=== PATIENT | male | born 1945 | race African-American/Black ===

== ENCOUNTER 2017-04-11 06:26 | Day surgery (SDC) | payer MEDICARE, BC, OTHER ==
--- NOTE | 2017-03-28 16:35 | HP ---
CC: Darlene Rubio MD * PREOPERATIVE HISTORY AND PHYSICAL: DATE OF ADMISSION/SURGERY: 04/11/17 DATE OF PREOPERATIVE HISTORY AND PHYSICAL EXAMINATION: 03/27/17 ATTENDING SURGEON: Eric Garay MD * (dictated by Natasha Sutherland NP). CHIEF COMPLAINT: Gallbladder polyps. HISTORY OF PRESENT ILLNESS: The patient is a 71-year-old male recently evaluated by Dr. Garay for intermittent abdominal pain and a known history of gallbladder polyps. The patient is complaining of more frequent abdominal discomfort mostly in the epigastrium and at times has a fear of food. A more recent ultrasound showed multiple gallbladder polyps as opposed to one. The patient denies any vomiting or change in the color of urine or stools. He has not had previous abdominal surgery. Dr. Garay has recommended laparoscopic cholecystectomy and has described the nature of the surgical procedure, the rationale for the procedure, the relevant risks, and benefits, and today I reviewed the expected postoperative care and recovery. The patient has had a chance to ask questions and stated that he understands the information and is satisfied with the answers given to his questions. He will sign surgical consent on the day of surgery. PAST MEDICAL HISTORY: Significant for hypertension, dyslipidemia, and hemorrhoids. PAST SURGICAL HISTORY: Limited to angiogram in the . MEDICATIONS: 1. Lisinopril 30 mg p.o. daily. 2. Aspirin 81 mg p.o. daily and the patient was instructed to hold it for 5 days preoperatively and take his last dose on 04/05/17. 3. Pravastatin 40 mg p.o. daily at bedtime. 4. Latanoprost eye drops 0.005% 1 drop in each eye daily. 5. [place] fish oil 1 capsule daily. 6. Dorzolamide HCl/timolol maleate 22.3/6.8 mg/mL 1 drop in both eyes b.i.d. ALLERGIES: No known drug allergies. Food allergy to [place], which caused nausea and vomiting. SOCIAL HISTORY: He is and is retired. He quit smoking many years ago. He denies the use of alcohol or other substances. FAMILY HISTORY: No known anesthesia complications, bleeding tendencies, or clotting disorders. REVIEW OF SYSTEMS: He denies any constitutional symptoms or recent acute illness or hospitalization. Cardiovascular: He is treated for hypertension and dyslipidemia; he was evaluated in October [address] Sanchez for what was diagnosed as atypical chest discomfort. His symptoms were over the course of 1 weekend in September 2016 and has not had a recurrence. Please see the attached consultation note by Dr. Sanchez for further details. Respiratory: Denies any chronic cough, asthma, or pneumonia. Gastrointestinal: As described in history of present illness. Genitourinary: Denies any dysuria. Denies any change in the color of urine. Musculoskeletal: Denies any complaints. Neurologic: Denies any complaints. He denies any bleeding tendencies and has never received a blood transfusion. He has received conscious sedation without any side effects and has never received general anesthesia. PHYSICAL EXAMINATION GENERAL SURVEY: The patient is a 71-year-old male, overweight, well developed, in no acute distress. VITAL SIGNS: Height 69 inches, weight 195 pounds, body mass index 28.8, blood pressure 126/84, pulse 72 and regular, respiratory rate 18, temperature 98. HEENT: Benign. Anicteric sclerae. NECK: Supple. No cervical lymphadenopathy. LUNGS: Breath sounds bilaterally clear and equal. HEART: Regular rate and rhythm. No murmurs or rubs appreciated. ABDOMEN: Active bowel sounds. Soft, nondistended, nontender throughout. No obvious masses, organomegaly, or evidence of ventral hernia. GENITALIA: Deferred. RECTAL: Deferred. BACK: No CVA tenderness. EXTREMITIES: Warm without edema or skin ulcerations. NEUROLOGIC: Alert and oriented x3. Steady gait. SKIN: Warm, dry, intact, anicteric. IMPRESSION: Gallbladder polyps. PLAN: Same day surgery admission to Dr. Garay's service on 04/11/17 for laparoscopic cholecystectomy. NATASHA SUTHERLAND NP [id number]/[facility] #: [id number] ALONDRA
[~2017-04-11 06:26] MED LIST: Buffered Lidocaine 0.9% SYRIN* 5 ML/SYR SYRINGE INTRADERM ONE; Sodium Citrate/Citric Acid* 15 ML UDC PO ONE
[2017-04-11] MEDS ORDERED: Bupivacaine 0.25% W/EPI* 50 ML VIAL ONE (07:01)
[2017-04-11] MEDS ORDERED: Sodium Citrate/Citric Acid* 15 ML UDC ONE (07:01)
[2017-04-11] MEDS ORDERED: Heparin VIAL(*) 5000 UNITS/ML VIAL (FIVE THOUSAND) ONE (07:01)
[2017-04-11] MEDS ORDERED: ceFAZolin 2 GM PREMIX(*) 2 GM/50 ML BAG IVPB ONE (07:01)
[2017-04-11] MEDS ORDERED: Buffered Lidocaine 0.9% SYRIN* 5 ML/SYR SYRINGE ONE (07:02)
[2017-04-11] MEDS ORDERED: Lidocaine 2% PF * 5 ML VIAL ONE (07:38)
[2017-04-11] MEDS ORDERED: Propofol* 10 MG/ML 20 ML BTL IV PUSH ONE (07:38)
[2017-04-11] MEDS ORDERED: Midazolam* 1 MG/ML 2 ML VIAL (2 MG) ONE (07:38)
[2017-04-11] MEDS ORDERED: fentaNYL* 50 MCG/ML 2 ML VIAL (100 MCG VIAL) ONE (07:38)
[2017-04-11] MEDS ORDERED: Ondansetron INJ* 2 MG/ML VIAL IV PRN (07:45)
[2017-04-11] MEDS ORDERED: fentaNYL* 50 MCG/ML 2 ML VIAL (100 MCG VIAL) IV PRN (07:45)
[2017-04-11] MEDS ORDERED: Rocuronium* 10 MG/ML VIAL ONE (07:56)
[2017-04-11] MEDS ORDERED: Dexamethasone IV* 4 MG/ML 1 ML (4 MG) ONE (08:29)
--- NOTE | 2017-04-11 08:38 | SURGPN ---
Brief Operative Note - Surgery Procedures: Procedures Pre-OP Diagnoses: chronic cholecystitis, GB polyps Post-op Diagnosis: same Procedure: Laparoscopic cholecystectomy Surgeon: Jarrod Petersont: Kelsy Felton: KENZIE Frazier EBL: minimal IVF: minimal Specimen: gallbladder Drains: none
[2017-04-11] MEDS ORDERED: oxyCODONE/Acetamin 5/325 MG* TAB PO PRN (08:49)
[2017-04-11 09:52] VITALS: BP 150/69
--- NOTE | 2017-04-12 03:42 | OP ---
CC: Dr. Darlene Rubio; [facility] * DATE OF OPERATION: 04/11/17 - [facility] DATE OF : 47 SURGEON: Eric Garay MD STUMP SHOOTER: PARAM Ruiz ANESTHESIOLOGIST: Dr. Frazier. ANESTHESIA: General. PRE-OP DIAGNOSIS: Chronic cholecystitis and gallbladder polyps. POST-OP DIAGNOSIS: Chronic cholecystitis and gallbladder polyps. OPERATIVE PROCEDURE: Laparoscopic cholecystectomy. BLOOD LOSS: Minimal. FLUIDS GIVEN: Crystalloid. SPECIMEN: Gallbladder. DRAINS: None. DESCRIPTION OF PROCEDURE: Mr. Solomon was identified in the preoperative area, marked, taken to the operating room, placed on the operating table in supine position, preoperative antibiotics given, sequential devices were placed on bilateral lower extremities. General anesthesia was induced. The patient's abdomen was prepped and draped in a standard surgical fashion and a timeout was performed. Folds of the umbilicus were elevated anteriorly and a Veress needle was inserted into the abdominal cavity, which was then allowed to insufflate to a pressure of 15 mmHg. The patient tolerated the insufflation well. A periumbilical incision was made and a 5 mm trocar was inserted through this. Laparoscope was inserted through this and there was no evidence of injury from the trocar insertion or from the Veress needle which was removed. Additional trocar was then placed in the following position: A 12 mm in the subxiphoid area and two 5 mm along the right costal margin. The patient was repositioned. Gallbladder fundus was identified, elevated above the liver, did not show any significant inflammatory changes. The common bile duct was identified along with the cystic duct. The fundus of the gallbladder was grasped and retracted towards the right lower quadrant. This gave us the critical view and dissection was carried out, taking the peritoneum off the medial aspect of the gallbladder and then off the lateral aspect of the cystic artery and cystic duct were both isolated. The cystic duct was triply clipped and ligated. Cystic artery was doubly clipped and ligated. Gallbladder was removed from liver bed, placed in endoscopic retrieval bag and brought out through the subxiphoid port. Review of the abdomen showed no bleeding, no bile. Clips were in place and abdomen was allowed to collapse. Trocars removed under direct vision and all 4 skin incisions were reapproximated in 4-0 Monocryl and subcuticular sutures followed by sterile dressing. [id number]/[facility] #: [id number] ALONDRA
== END 2017-04-11 10:20 | disposition home or self-care (01) ==
LOC: OR 06:26
PROVIDERS: ATTEND Surgery
DX: K81.1 Chronic cholecystitis (principal); I10 Essential (primary) hypertension; E78.5 Hyperlipidemia, unspecified; Z87.891 Personal history of nicotine dependence
CPT/HCPCS: 88304; A9270-GY; J0690; J1100; J1644; J2250; J2704; J3010

== ENCOUNTER 2017-07-31 10:54 | Day surgery (SDC) | payer MEDICARE, BC, OTHER ==
[~2017-07-31 10:54] MED LIST changes: +Acetaminophen TAB* 325 MG PO PRN; +Phenylephr/Ketorolac 1%/0.3% OPH DROP BTL ONE; -Sodium Citrate/Citric Acid* 15 ML UDC PO ONE
[2017-07-31] MEDS ORDERED: fentaNYL* 50 MCG/ML 2 ML VIAL (100 MCG VIAL) ONE (12:21)
[2017-07-31] MEDS ORDERED: Lidocaine 2% PF * 5 ML VIAL ONE (12:22)
[2017-07-31] MEDS ORDERED: Propofol* 10 MG/ML 20 ML BTL IV PUSH ONE (12:22)
[2017-07-31 13:48] VITALS: BP 144/78
[2017-07-31] MEDS ORDERED: Phenylephrine 2.5% OPTH.SOL* 2 ML BTL ONE (15:04)
[2017-07-31] MEDS ORDERED: Buffered Lidocaine 0.9% SYRIN* 5 ML/SYR SYRINGE ONE (15:04)
[2017-07-31] MEDS ORDERED: Tropicamide 1% OPTH.SOL* BTL ONE (15:04)
[2017-07-31] MEDS ORDERED: Neomycin/Polymy/Dex OPHTH.OIN* 3.5 GM ONE (15:04)
[2017-07-31] MEDS ORDERED: Ketorolac 0.5% OPHTH (NF) 0.5 % 5 ML BTL ONE (15:04)
[2017-07-31] MEDS ORDERED: Cyclopentolate 1% OPTH.SOL* 2 ML BTL ONE (15:04)
[2017-07-31] MEDS ORDERED: Tetracaine 0.5% OPTH.SOL 4 ML* 1 DROP BTL ONE (15:04)
[2017-07-31] MEDS ORDERED: Lidocaine 1% MPF* 2 ML VIAL ONE (15:04)
--- NOTE | 2017-08-01 01:07 | OP ---
DATE OF OPERATION: 07/31/17 [facility] DATE OF : 47 SURGEON: Dr. Iglesia Gonzalez. CUSTOMER LIAISON: None. ANESTHESIA: General. PRE-OP DIAGNOSES: Cataract and glaucoma, left eye. POST-OP DIAGNOSES: Cataract and glaucoma, left eye. OPERATIVE PROCEDURE: Phacoemulsification and cataract extraction with posterior chamber intraocular lens implant, left eye and iStent implant, left eye. COMPLICATIONS: None. BLOOD LOSS: None. DESCRIPTION OF PROCEDURE: The patient was brought to the operating room and received general anesthesia without any complications. A drop of Tetracaine was placed in his left eye. The patient was prepped and draped in the usual sterile fashion for ophthalmic surgery and attention was directed to the left eye where a speculum was placed. A paracentesis was created at the 5 o'clock position. A 0.1 cc of 1% preservative-free lidocaine was injected into the anterior chamber followed by DisCoVisc. The eye was digitally stabilized while a 2.75 mm keratome was used to create a triplanar clear corneal incision at the 3 o'clock position. A continuous curvilinear capsulorrhexis was created with a cystotome and Utrata forceps. BSS on a cannula was used to hydrodissect the lens from the capsule. Phacoemulsification was performed in a divide-and- conquer technique to create 4 fragments which were removed. Residual cortical material was removed with irrigation and aspiration. Omidria had been added to the irrigating solution at the beginning of the case due to the small pupil. 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 DisCoVisc was used to inflate the capsular bag further and an AU00T0 24 diopter lens was folded and placed in the capsular bag. Further DisCoVisc was used to inflate the anterior chamber and coat the surface of the cornea. The patient's head was rotated away from the surgeon and the microscope was rotated towards the surgeon. A gonioprism was placed on the surface of the eye. An iStent was introduced into the anterior chamber and under direct visualization, it was inserted to the trabecular meshwork in the nasal aspect. The iStent ornamental painter and the gonioprism were removed. The patient's head and microscope were returned to a neutral position. Irrigation and aspiration was performed to remove viscoelastic from the eye. BSS on a cannula was used to hydrate the corneal stroma and seal the wound. At the end of the case, the pupil was round, the lens was centered, the eye pressure was normal. The wound was closed, the iStent was in good position. Topical Maxitrol ointment was placed on the surface of the eye after the speculum was removed. The eye was closed with patches and shielded and the patient was sent to recovery room in stable condition with postop instructions and followup appointment given. [id number]/[facility] #: [id number] ALONDRA
== END 2017-07-31 13:31 | disposition home or self-care (01) ==
LOC: OREAST 10:54
PROVIDERS: ATTEND Ophthalmology
DX: H25.12 Age-related nuclear cataract, left eye (principal); H40.89 Other specified glaucoma; I10 Essential (primary) hypertension; E78.00 Pure hypercholesterolemia, unspecified; Z83.518 Family history of other specified eye disorder; Z83.511 Family history of glaucoma; H18.452 Nodular corneal degeneration, left eye; Z87.891 Personal history of nicotine dependence; R10.9 Unspecified abdominal pain
CPT/HCPCS: A9270-GY; C1783; C9447; J2704; J3010; V2632

== ENCOUNTER 2017-08-07 13:38 | Day surgery (SDC) | payer MEDICARE, BC, OTHER ==
[~2017-08-07 13:38] MED LIST changes: -Acetaminophen TAB* 325 MG PO PRN; -Phenylephr/Ketorolac 1%/0.3% OPH DROP BTL ONE
[2017-08-07] MEDS ORDERED: Lidocaine 2% PF * 5 ML VIAL ONE (16:39)
[2017-08-07] MEDS ORDERED: Propofol* 10 MG/ML 20 ML BTL IV PUSH ONE (16:39)
[2017-08-07] MEDS ORDERED: Sodium Citrate/Citric Acid* 15 ML UDC ONE (16:50)
[2017-08-07] MEDS ORDERED: Phenylephr/Ketorolac 1%/0.3% OPH DROP BTL ONE (17:01)
[2017-08-07] MEDS ORDERED: Labetalol IV* 5 MG/ML 20 ML VIAL ONE (17:21)
[2017-08-07 17:51] VITALS: BP 143/80
--- NOTE | 2017-08-08 05:13 | OP ---
DATE OF OPERATION: 08/07/17 [facility] DATE OF : 47 SURGEON: Iglesia Gonzalez MD HAND INSPECTOR: None. ANESTHESIOLOGIST: Lloyd Frazier DO ANESTHESIA: General supplemented in topical. PRE-OP DIAGNOSIS: Cataract and glaucoma, right eye. POST-OP DIAGNOSIS: Cataract and glaucoma, right eye. OPERATIVE PROCEDURE: Phacoemulsification and cataract extraction with posterior chamber intraocular lens implant, right eye and iStent implant, right eye. COMPLICATIONS: None. BLOOD LOSS: None. DESCRIPTION OF PROCEDURE: The patient was brought to the operating room and received general anesthesia. A drop of Tetracaine was placed in his right eye. He was prepped and draped in the usual sterile fashion for ophthalmic surgery and attention was directed to the right eye where a speculum was placed. A paracentesis was created at the 11 o'clock position. A 0.1 cc of 1% preservative- free lidocaine was injected into the anterior chamber followed by DisCoVisc. The eye was digitally stabilized while a 2.75 mm keratome was used to create a triplanar clear corneal incision at the 9 o'clock position. A continuous curvilinear capsulorrhexis was created with a cystotome and Utrata forceps. BSS on a cannula was used to hydrodissect the lens from the capsule. Phacoemulsification was performed in a [id number] technique to create 4 fragments which were removed. Residual cortical material was removed with irrigation and aspiration. DisCoVisc was used to inflate the capsular bag. An AUOOTO 23.5 diopter lens was folded and inserted in the capsular bag. Supplemental DisCoVisc was put into the anterior chamber to deepen it and on the surface of the cornea. The patient's head was rotated away from the surgeon and the microscope was rotated towards the surgeon. A gonioprism was placed on the surface of the eye. An iStent was introduced into the anterior chamber. Under direct visualization, the iStent was placed into the nasal trabecular meshwork. The iStent intermodal owner operator truck driver and the gonioprism were removed. The patient's head and the microscope were returned to a neutral position. Irrigation and aspiration was performed to remove viscoelastic from the eye. BSS on a cannula was used to hydrate the corneal stroma and seal the wound. At the end of the case, the pupil was round. The lens was centered and stable. The iStent was in good position. The eye pressure was normal and the wound was watertight. The speculum was removed and topical Maxitrol ointment was placed on the surface of the eye. The eye was closed with patch and shielded and the patient was sent to recovery room in stable condition with postop instructions and followup appointment given. [id number]/[facility] #: [id number] ALONDRA
== END 2017-08-07 17:10 | disposition home or self-care (01) ==
LOC: OREAST 13:38
PROVIDERS: ATTEND Ophthalmology
DX: H25.11 Age-related nuclear cataract, right eye (principal); H40.89 Other specified glaucoma; I10 Essential (primary) hypertension; Z79.82 Long term (current) use of aspirin; E78.00 Pure hypercholesterolemia, unspecified; Z87.891 Personal history of nicotine dependence; R10.9 Unspecified abdominal pain; M10.9 Gout, unspecified
CPT/HCPCS: A9270-GY; C1783; C9447; J2704; V2632

== ENCOUNTER 2018-02-12 07:25 | Day surgery (SDC) | payer MEDICARE, OTHER, BC ==
--- NOTE | 2018-02-06 20:38 | HP ---
PREOPERATIVE HISTORY AND PHYSICAL: DATE OF SURGERY/ADMISSION: 02/12/18 [facility] ATTENDING SURGEON: Carina Bañuelos MD * (DICTATED BY PARAM CARLTON) PROCEDURE: Right hand excision mass. CHIEF COMPLAINT: Mass, right hand. HISTORY OF PRESENT ILLNESS: This is a 72-year-old male who complains of a lump in the palm of his right hand that has been present for many months. It is not particularly painful, but it is becoming more and more bothersome to him as it seems to be getting larger. He does not recall any specific injury and has not had any puncture wounds in the area. He denies any numbness or tingling associated with it. He would like to have this cyst removed. He has had a history of chest pain in the past with no significant cardiac cause identified. He was most recently evaluated by Dr. Sanchez in October 2016 who concluded that his symptoms were not consistent with cardiac ischemia. No further workup was ordered and the patient has not had any issues since. PAST MEDICAL HISTORY: 1. Hyperlipidemia. 2. Hypertension. 3. Gout. PAST SURGICAL HISTORY: 1. Cholecystectomy. 2. Bilateral cataract removal. CURRENT MEDICATIONS: 1. Aspirin 81 mg daily. 2. Dorzolamide HCL/timolol maleate 22.3/6.8 one drop both eyes b.i.d. 3. Fish oil/[place] 3 of 4543-3809 mg 1 cap daily. 4. Latanoprost 0.005% 1 drop each eye daily. 5. Lisinopril 40 mg daily. 6. Metoprolol tartrate 25 mg twice a day. 7. Pravastatin 30 and 40 mg daily. 8. Vitamin D3 of 2000 units daily. ALLERGIES: No known drug allergies. FAMILY MEDICAL HISTORY: Noncontributory. SOCIAL HISTORY: The patient is retired. He is a former smoker, he quit in 1977 , prior to that he was a heavy smoker. He denies recreational drug use. He drinks alcohol on rare occasions. REVIEW OF SYSTEMS: General: Negative for fevers, chills, or night sweats, unexplained weight loss or gain. No known anesthesia problems in the past. HEENT: Negative for headache, lightheadedness, syncopal episodes, visual changes. Integumentary: Negative for abrasions, lesions, or open wounds. Cardiothoracic: Negative for hypertension, chest pain, palpitations, or edema. Respiratory: Negative for shortness of breath with exertion, chronic cough, or wheezing. GI: Negative for nausea, vomiting, diarrhea, constipation, or GERD. : Negative for nocturia, urinary frequency, urgency, history of UTIs, or kidney problems. Musculoskeletal: Positive for current complaint. Negative for chronic or intermittent back pain or history of fractures. Neurological: Negative for paresthesias, numbness, history of seizure, stroke, or poor balance. Endocrine: Negative for diabetes mellitus and thyroid issues. Hematologic: Negative for easy bruising, anemia, bleeding disorders, history of DVT. Infectious Disease: Negative for history of history of MRSA, hepatitis C, or HIV. PHYSICAL EXAMINATION GENERAL: Well-developed, well-nourished 72-year-old male in no acute distress. VITAL SIGNS: Height 5 feet 9 inches, weight 190 pounds. Blood pressure 130/80 , pulse is 72. HEENT: Normocephalic and atraumatic. Pupils are equal, round, and reactive to light and accommodation. Extraocular movements are intact. NECK: Supple. No palpable lymph nodes. Throat is clear. PULMONARY: Lungs are clear to auscultation bilaterally. No wheezes, rales, or rhonchi. CARDIOVASCULAR: Regular rate and rhythm. S1 and S2. No murmurs, rubs, or gallops. No edema. ABDOMEN: Positive bowel sounds. Soft and nontender. NEUROLOGIC: Alert, awake, and oriented x3. Cranial nerves II through XII are intact. Sensation is intact to light touch. MUSCULOSKELETAL: On exam of his right hand, there is a mass on the palm of his hand in line with his ring finger at about mid palm. It measures approximately 1 cm x 8 mm. It is not tender to palpation. It is firm, subcutaneous, and mobile. He has full extension and flexion of his fingers. Neurovascular function is intact. He has good wrist motion. IMPRESSION: Right hand mass. PLAN: The patient is scheduled to undergo a right hand excision mass with Dr. Bañuelos on 02/12/18. He will return to the office 10 days postop for followup and suture removal. He is planning on using [id number] medications for postoperative pain management. PARAM CARLTON [id number]/[facility] #: [id number] [facility]
[~2018-02-12 07:25] MED LIST changes: +Famotidine IV* 10 MG/ML 2 ML (20 mg) IV ONE; +Lidocaine 1% INJ* 10 MG/ML 30 ML SDV ONE
[2018-02-12] MEDS ORDERED: Famotidine IV* 10 MG/ML 2 ML (20 mg) ONE (08:14)
[2018-02-12] MEDS ORDERED: Naloxone* 0.4 MG/ML 1 ML VIAL IV PRN (08:18)
[2018-02-12] MEDS ORDERED: DiMENhydriNATE IV* 50 MG/ML VIAL IV PUSH PRN (08:18)
[2018-02-12] MEDS ORDERED: Acetaminophen TAB* 325 MG PO PRN (08:18)
[2018-02-12] MEDS ORDERED: Midazolam* 1 MG/ML 5 ML VIAL (5 MG) ONE (08:32)
[2018-02-12] MEDS ORDERED: fentaNYL* 50 MCG/ML 2 ML VIAL (100 MCG VIAL) ONE (08:32)
[2018-02-12] MEDS ORDERED: Propofol* 10 MG/ML 20 ML BTL IV PUSH ONE (09:13)
[2018-02-12] MEDS ORDERED: Ketorolac INJ* 30 MG/ML 1 ML VIAL ONE (09:18)
[2018-02-12 10:14] VITALS: BP 125/80
--- NOTE | 2018-02-12 22:01 | OP ---
DATE OF OPERATION: 02/12/18 [facility] DATE OF : 47 SURGEON: Carina Bañuelos MD COATER SMOKING PIPE: PARAM Duncan ANESTHESIA: Local MAC. PRE-OP DIAGNOSIS: Right hand mass. POST-OP DIAGNOSIS: Right hand mass. OPERATIVE PROCEDURE: Remove right hand mass. ESTIMATED BLOOD LOSS: Zero. TOURNIQUET TIME: About 10 minutes. INDICATIONS FOR PROCEDURE: Rich is a 72-year-old man with a bothersome mass in the palm of his right hand. He presents for removal. DESCRIPTION OF PROCEDURE: The patient was brought to the operating room, was given a sedation anesthetic and a local infiltration of 10 cc of 1% plain lidocaine in the palm of his right hand. The skin of his right hand and forearm were prepped and draped in the usual sterile fashion. The hand and forearm were exsanguinated and the tourniquet elevated to 250 mmHg. A Chevron incision was made, centered over the mass. The mass was carefully dissected away from the skin in the underlying tendon and neurovascular bundles. It measured approximately 1 cm in length and diameter, was removed and sent for Pathology. There was no tenosynovitis surrounding the tendons and no residual mass. The wound was irrigated and the skin edges reapproximated with 4-0 nylon suture. The wound was dressed with Xeroform, 4x4, Webril, and an Bro wrap. The patient tolerated the procedure well and was brought to the recovery room in good condition. [id number]/[facility] #: [id number] [facility] NETWORKElen
== END 2018-02-12 10:46 | disposition home or self-care (01) ==
LOC: OREAST 07:25
PROVIDERS: ATTEND Orthopaedic Surgery
DX: M72.0 Palmar fascial fibromatosis [Dupuytren] (principal); I10 Essential (primary) hypertension; E78.5 Hyperlipidemia, unspecified; M10.9 Gout, unspecified; Z87.891 Personal history of nicotine dependence; K21.9 Gastro-esophageal reflux disease without esophagitis; F41.9 Anxiety disorder, unspecified; N28.1 Cyst of kidney, acquired
CPT/HCPCS: 88305; J1885; J2250; J2704; J3010

== ENCOUNTER 2018-08-19 20:42 | Emergency (ER) | payer MEDICARE, BC ==
[2018-08-20] MEDS ORDERED: cloNIDine TAB* 0.1 MG PO ONE (00:05)
[2018-08-20] MEDS ORDERED: ALPRAZolam TAB* 0.5 MG PO ONE (00:06)
[2018-08-20 00:29] LABS: ABS Basophils 0.1 10^3/ul (0-0.2); ABS Eosinophils 0.1 10^3/ul (0-0.6); ABS Lymphocytes 1.5 10^3/ul (1.0-4.8); ABS Monocytes 0.4 10^3/ul (0-0.8); ABS Neutrophils 4.6 10^3/ul (1.5-7.7); ABS Nucleated RBC 0 10^3/ul; Hematocrit 42 % (42-52); Hemoglobin 13.7 g/dl (14.0-18.0); Lymphocyte % 21.9 %; Mean Corpuscular HGB Conc 33 g/dl (31-36); Mean Corpuscular Hemoglobin 28 pg (27-31); Mean Corpuscular Volume 87 fL (80-94); Mean Platelet Volume 9.5 fL (7.4-10.4); Nucleated Red Blood Cells % 0.1; Platelet Count 161 10^3/ul (150-450); Red Blood Count 4.81 10^6/ul (4.00-5.40); Red Cell Distribution Width 14 % (10.5-15); White Blood Count 6.6 10^3/ul (3.5-10.8)
--- NOTE | 2018-08-20 00:43 | ED ---
HPI Cardiac - HPI Summary HPI Summary: Patient is a 73 y/o M presenting to ED with complaints of pressure in head, feeling pulse in neck and hearing heart beat in his ears. On triage, it is reported that patient has been hearing heart beat in ears for 1.5 months typically after he eats. In the room, patient states that he experienced onset of head pressure today, measured his BP using his home machine which reported irregular pulse and rate <40. Patient states that at this time he was able to feel his pulse in his neck and reports general pruritis as well. He called PCP, was advised to come to ED. PMHx of anxiety and panic attacks is denied. Patient is on 40 mg lisinopril in the morning and 12.5 metoprolol, one in the morning, one in the evening, daily. Patient took medications before arriving to ED. On triage, pain is denied, nothing is noted to aggravate/alleviate Sx. Home medications and allergies are reviewed. - History of Current Complaint Chief Complaint: EDGeneral Stated Complaint: HEAD PRESSURE Time Seen by Provider: 08/19/18 23:39 Hx Obtained From: Patient Onset/Duration: Started Hours Ago - head pressure, pruritis, and feeling pulse in neck onset today, Started Weeks Ago - hearing heart beat in his ears 1.5 months ago Timing: Lasting Hours - head pressure, pruritis, and feeling pulse in neck onset today, Lasting Weeks - hearing heart beat in his ears 1.5 months ago Current Severity: None - pain denied Pain Intensity: 0 Pain Scale Used: 0-10 Numeric - 0/10 Chest Pain Radiates: No Aggravating Factor(s): Nothing Alleviating Factor(s): Nothing Associated Signs and Symptoms: Positive: Other: - complaints of pressure in head , feeling pulse in neck and hearing heart beat in his ears. general pruritis - Allergy/Home Medications Allergies/Adverse Reactions: Allergies Allergy/AdvReac Type Severity Reaction Status Date / Time sardine Allergy GI Upset Uncoded 08/19/18 20:52 Home Medications: Home Medications hydrALAZINE TAB* 10 mg PO DAILY 08/19/18 [History Confirmed 08/19/18] PMH/Surg Hx/FS Hx/Imm Hx Endocrine/Hematology History: Denies: Hx Diabetes, Hx Systemic Lupus Erythematosus Cardiovascular History: Reports: Hx Hypertension - ON MEDICATION FOR, Hx Valvular Heart Disease - LEAKY ALVE Denies: Hx Congestive Heart Failure, Hx Pacemaker/ICD GI History: Reports: Hx Gastroesophageal Reflux Disease - on an occassion History: Reports: Other Problems/Disorders - 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, but no issues/ENLARGED PROSTATE Denies: Hx Renal Disease Musculoskeletal History: Reports: Hx Arthritis - HANDS Denies: Hx Rheumatoid Arthritis Sensory History: Reports: Hx Cataracts - bilat eyes, Hx Contacts or Glasses - GLASSES, Hx Glaucoma, Other Sensory Impairments - eye pressure uses drops Denies: Hx Hearing Aid Opthamlomology History: Reports: Hx Cataracts - bilat eyes, Hx Contacts or Glasses - GLASSES, Hx Glaucoma, Other Sensory Impairments - eye pressure uses drops Psychiatric History: Denies: Hx Panic Disorder - Surgical History Surgery Procedure, Year, and Place: GALLBLADDER REMOVAL-04/2017. 07/2017- BILATERAL CATARACT REMOVAL Hx Anesthesia Reactions: No - Immunization History Date of Tetanus Vaccine: today Infectious Disease History: No Infectious Disease History: Denies: Traveled Outside the [place] in Last 30 Days - Family History Known Family History: Negative: Blood Disorder - Social History Alcohol Use: Rare Substance Use Type: Reports: None Smoking Status (MU): Former Smoker Amount Used/How Often: smoked for about 10 years, 1ppd Have You Smoked in the Last Year: No Review of Systems Positive: Other - feeling pulse in neck and hearing heart beat in his ears Positive: Other - general pruritis Neurological: Other - complaints of pressure in head All Other Systems Reviewed And Are Negative: Yes Physical Exam - Summary Physical Exam Summary: VITAL SIGNS: Reviewed. GENERAL: Patient is a well-developed and nourished male who is lying comfortable in the stretcher. Patient is not in any acute respiratory distress. HEAD AND FACE: No signs of trauma. No ecchymosis, hematomas or skull depressions. No sinus tenderness. EYES: PERRLA, EOMI x 2, No injected conjunctiva, no nystagmus. EARS: Hearing grossly intact. Ear canals and tympanic membranes are within normal limits. MOUTH: Oropharynx within normal limits. NECK: Supple, trachea is midline, no adenopathy, no JVD, no carotid bruit, no c- spine tenderness, neck with full ROM. CHEST: Symmetric, no tenderness at palpation LUNGS: Clear to auscultation bilaterally. No wheezing or crackles. CVS: Regular rate and rhythm, S1 and S2 present, no murmurs or gallops appreciated. ABDOMEN: Soft, non-tender. No signs of distention. No rebound no guarding, and no masses palpated. Bowel sounds are normal. EXTREMITIES: FROM in all major joints, no edema, no cyanosis or clubbing. NEURO: Alert and oriented x 3. No acute neurological deficits. Speech is normal and follows commands. SKIN: Dry and warm Triage Information Reviewed: Yes Vital Signs On Initial Exam: Initial Vitals Temp Pulse Resp BP Pulse Ox 98.6 F 74 16 182/87 96 08/19/18 20:49 08/19/18 20:49 08/19/18 20:49 08/19/18 20:49 08/19/18 20:49 Vital Signs Reviewed: Yes Diagnostics - Vital Signs Vital Signs Temp Pulse Resp BP Pulse Ox 08/20/18 00:21 18 08/19/18 23:51 62 160/92 98 08/19/18 23:30 73 194/79 99 08/19/18 20:49 98.6 F 74 16 182/87 96 - Laboratory Lab Results: Lab Results 08/20/18 Range/Units 00:22 WBC 6.6 (3.5-10.8) 10^3/ul RBC 4.81 (4.00-5.40) 10^6/ul Hgb 13.7 L (14.0-18.0) g/dl Hct 42 (42-52) % MCV 87 (80-94) fL MCH 28 (27-31) pg MCHC 33 (31-36) g/dl RDW 14 (10.5-15) % Plt Count 161 (150-450) 10^3/ul MPV 9.5 (7.4-10.4) fL Neut % (Auto) 68.7 % Lymph % (Auto) 21.9 % [place] % (Auto) 6.3 % Eos % (Auto) 1.0 % Baso % (Auto) 2.1 % Absolute Neuts (auto) 4.6 (1.5-7.7) 10^3/ul Absolute Lymphs (auto) 1.5 (1.0-4.8) 10^3/ul Absolute Monos (auto) 0.4 (0-0.8) 10^3/ul Absolute Eos (auto) 0.1 (0-0.6) 10^3/ul Absolute Basos (auto) 0.1 (0-0.2) 10^3/ul Absolute Nucleated RBC 0 10^3/ul Nucleated RBC % 0.1 Result Diagrams: 08/20/18 00:22 08/20/18 00:22 Lab Statement: Any lab studies that have been ordered have been reviewed, and results considered in the medical decision making process. - EKG 0044 Cardiac Rate: NL - RATE OF 65 BPM EKG Rhythm: Sinus Rhythm Summary of EKG Findings: EKG showed sinus rhythm with rate of 65 BPM, first degree AV block,. Normal axis. Normal interval. No ischemic changes. Re-Evaluation - Re-Evaluation First Eval Re-Evaluation Time: 00:56 Change: Improved Comment: Patient reports that he is feeling better. Results of labs and tests were discussed, patient is agreeable with discharge. Disposition - Course Course Of Treatment: Patient is a 73 y/o M presenting to ED with complaints of pressure in head, feeling pulse in neck and hearing heart beat in his ears. On triage, it is reported that patient has been hearing heart beat in ears for 1.5 months typically after he eats. In the room, patient states that he experienced onset of head pressure today, measured his BP using his home machine which reported irregular pulse and rate <40. Patient states that at this time he was able to feel his pulse in his neck and reports general pruritis as well. He called PCP, was advised to come to ED. PMHx of anxiety and panic attacks is denied. Patient is on 40 mg lisinopril in the morning and 12.5 metoprolol, one in the morning, one in the evening, daily. Patient took medications before arriving to ED. Physical exam is normal. EKG showed sinus rhythm with rate of 65 BPM, first degree AV block,. Normal axis. Normal interval. No ischemic changes. Abnormal labs included glucose 102, creatinine 1.18, Hgb 13.7. Trop was 0.01. During ED course, patient received Xanax 0.5 mg PO ONCE ONE and catapres 0.1 mg PO ONCE ONE. Patient reports that he is feeling better. Results of labs and tests were discussed, patient is agreeable with discharge. - Diagnoses Provider Diagnoses: HTN (hypertension), Anxiety Discharge - Sign-Out/Discharge Documenting (check all that apply): Patient Departure - discharge - Discharge Plan Condition: Stable Disposition: HOME Patient Education Materials: Hypertension (ED), Anxiety (ED) Referrals: Darlene Moreno MD [Primary Care Provider] - 2 Days Additional Instructions: INCREASE METOPROLOL TO 25 MG TWICE DAILY. RETURN TO THE EMERGENCY DEPARTMENT FOR CHANGING OR WORSENING SYMPTOMS. FOLLOW UP WITH PRIMARY CARE PHYSICIAN IN 1-2 DAYS. - Attestation Statements Document Initiated by Scribe: Yes Documenting Scribe: ROSSY LAM Provider For Whom Scribe is Documenting (Include Credential): ANNIE WANG MD Scribe Attestation: IROSSY , scribed for ANNIE WANG MD on 08/20/18 at 0113. Status of Scribe Document: Ready
[2018-08-20 00:47] LABS: EGFR Non-African American 60.7 (>60)
[2018-08-20 01:14] VITALS: BP 164/88
== END 2018-08-20 01:13 | disposition home or self-care (01) ==
LOC: ED 20:42
DX: I10 Essential (primary) hypertension (principal); F41.9 Anxiety disorder, unspecified; L29.9 Pruritus, unspecified; Z87.891 Personal history of nicotine dependence
CPT/HCPCS: 36415; 80053; 84484; 85025; 93005; 99283; A9270-GY

== ENCOUNTER 2019-02-17 14:59 | Emergency (ER) | payer MEDICARE, BC ==
--- OUTSIDE RECORDS SUMMARY | 2019-02-17 15:14 | XMS REPORT | Continuity of Care Document ---
:1945 External Reference #:[id number] Author Name Iglesia Gonzalez M.D. Address 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 Onset: 11/25/2016 Tear film insufficiency Iglesia Gonzalez M.D. Onset: 11/25/2016 Bilateral primary open angle glaucoma Iglesia Gonzalez M.D. Onset: 11/25/2016 Marginal corneal ulcer Iglesia Gonzalez M.D. Onset: 01/14/2016 Primary open-angle glaucoma, moderate stage Iglesia Gonzalez M.D. Onset: 07/08 Conjunctival cyst Iglesia Gonzalez M.D. Onset: 11/13/2013 Superficial keratitis Iglesia Gonzalez M.D. Onset: 11/13/2013 Nuclear senile cataract Iglesia Gonzalez M.D. Onset: 11/13/2013 Open-angle glaucoma Iglesia Gonzalez M.D. Onset: 11/13/2013 Family History Date Family Member(s) Observation Comments Father Noncontributory Mother Cataract Mother Glaucoma Social History Type Date Description Comments Sex Unknown ETOH Use Rarely consumes alcohol once a year "if that" Tobacco Use Start: Unknown Patient has never smoked Smoking Status Reviewed: 01/27/19 Patient has never smoked Allergies, Adverse Reactions, Alerts Description No Known Drug Allergies Medications Active Medications SIG Qnty Indications Ordering Provider Date Dorzolamide instill 1 drop 10units H40.10x2 Iglesia Gonzalez, 05/29/2014 HCL/Timolol Maleate in each eye M.D. twice a day 22.3-6.8mg/ml Solution Aspirin Unknown 81mg Pravastatin Unknown 40mg Vitamin D High Unknown Potency 2000Unit Capsules Amlodipine Besylate Darlene Rubio, 2.5mg Tablets Lisinopril Take One Tablet Unknown 40mg Tablets By Mouth Every Day Metoprolol Tartrate Darlene Rubio, 25mg Tablets Fish Oil 1 by mouth every Unknown 1000mg day Capsules History Medications Timolol Maleate 1 drops both 30ml Iglesia Gonzalez, 11/05/2017 - 0.5% eyes twice a day M.D. 06/14/2018 Solution Brimonidine Tartrate 1 drop both eyes 15ml 365.10 Iglesia Gonzalez, 2013 - twice a day M.D. 06/24/2014 0.15% Solution Timolol Maleate 1 drops both 5ml Iglesia Gonzalez, 05/15/2014 - 0.5% eyes twice a day M.D. 05/29/2014 Solution Timolol Maleate 1 drop both eyes 5ml 365.10 Iglesia Gonzalez, 02/13/2014 - 0.5% once in the M.D. 05/29/2014 GFS morning Latanoprost 0.005% 1 Gtt OU qhs Iglesia Gonzalez, 11/13/2013 - M.D. 01/21/2014 Lisinopril Unknown - 06/14/2018 Amoxicillin Unknown - 500mg 06/14/2018 Capsules Ibuprofen Unknown - 800mg Tablets 06/14/2018 Ketoconazole Unknown - 2% Cream 06/14/2018 Hydralazine HCL Unknown - 10mg 01/27/2019 Tablets Vital Signs Date Vital Result Comment 01/27/2019 2:12pm Intraocular Pressure Right Eye 17 mmHg Intraocular Pressure Left Eye 17 mmHg 10/28/2018 2:43pm Intraocular Pressure Right Eye 20 mmHg Intraocular Pressure Left Eye 20 mmHg 06/14/2018 1:27pm Intraocular Pressure Right Eye 16 mmHg Intraocular Pressure Left Eye 16 mmHg 12/10/2017 2:10pm Intraocular Pressure Right Eye 19 mmHg Intraocular Pressure Left Eye 19 mmHg 09/11/2017 10:11am Intraocular Pressure Right Eye 20 mmHg Intraocular Pressure Left Eye 20 mmHg 08/21/2017 11:41am Intraocular Pressure Right Eye 19 mmHg Intraocular Pressure Left Eye 18 mmHg 08/14/2017 1:27pm Intraocular Pressure Right Eye 27 mmHg Intraocular Pressure Left Eye 25 mmHg 08/08/2017 9:51am Intraocular Pressure Right Eye 24 mmHg Intraocular Pressure Left Eye 20 mmHg 08/01/2017 9:55am Intraocular Pressure Left Eye 23 mmHg 06/07/2017 1:38pm Intraocular Pressure Right Eye 19 mmHg Intraocular Pressure Left Eye 19 mmHg 04/26/2017 9:45am Intraocular Pressure Right Eye 18 mmHg Intraocular Pressure Left Eye 18 mmHg 03/01/2017 3:21pm Intraocular Pressure Right Eye 18 mmHg Intraocular Pressure Left Eye 18 mmHg 11/25/2016 8:40am Intraocular Pressure Right Eye 17 mmHg Intraocular Pressure Left Eye 17 mmHg 11/03/2016 1:43pm Intraocular Pressure Right Eye 17 mmHg Intraocular Pressure Left Eye 17 mmHg 08/02/2016 2:04pm Intraocular Pressure Right Eye 17 mmHg Intraocular Pressure Left Eye 17 mmHg 04/18/2016 1:45pm Intraocular Pressure Right Eye 18 mmHg Intraocular Pressure Left Eye 18 mmHg 01/14/2016 1:22pm Intraocular Pressure Right Eye 18 mmHg Intraocular Pressure Left Eye 18 mmHg 10/08/2015 3:23pm Intraocular Pressure Right Eye 16 mmHg Intraocular Pressure Left Eye 16 mmHg 07/08/2015 2:30pm Intraocular Pressure Right Eye 16 mmHg Intraocular Pressure Left Eye 16 mmHg 03/11/2015 9:46am Intraocular Pressure Right Eye 20 mmHg thick mires, pt squeezing Intraocular Pressure Left Eye 20 mmHg 12/28/2014 1:09pm Intraocular Pressure Right Eye 18 mmHg Intraocular Pressure Left Eye 18 mmHg 09/29/2014 1:27pm Intraocular Pressure Right Eye 25 mmHg Intraocular Pressure Left Eye 25 mmHg 06/24/2014 1:30pm Intraocular Pressure Right Eye 18 mmHg Intraocular Pressure Left Eye 18 mmHg 06/08/2014 11:39am Intraocular Pressure Right Eye 25 mmHg difficult ou Intraocular Pressure Left Eye 25 mmHg 05/29/2014 3:32pm Intraocular Pressure Right Eye 34 mmHg Intraocular Pressure Left Eye 32 mmHg 05/21/2014 2:06pm Intraocular Pressure Right Eye 28 mmHg Intraocular Pressure Left Eye 26 mmHg 03/25/2014 1:59pm Intraocular Pressure Right Eye 21 mmHg Intraocular Pressure Left Eye 19 mmHg 03/04/2014 2:20pm Intraocular Pressure Right Eye 25 mmHg Intraocular Pressure Left Eye 21 mmHg 02/13/2014 3:31pm Intraocular Pressure Right Eye 21 mmHg Intraocular Pressure Left Eye 23 mmHg 11/13/2013 2:58pm Intraocular Pressure Right Eye 22 mmHg Intraocular Pressure Left Eye 23 mmHg Procedures Date Code Description Status 01/27/2019 26661 Eye Exam Est Intermediate Completed 10/28/2018 24889 Oct, Optic Nerve Completed 06/14/2018 90835 Fundus Photography W/Interpretation & Report Completed 06/14/2018 39422 Ophthalmoscopy Subsequent Completed 06/14/2018 92541 Eye Exam Est Intermediate Completed 03/14/2018 21594 Visual Field Exam Extended, Unilateral Or Bilateral Completed 03/14/2018 51088 Eye Exam Est Intermediate Completed 12/10/2017 17893 Eye Exam Est Intermediate Completed 08/07/2017 35676 Extracapsular Cataract Extraction W/Intraocular Lens Completed 08/07/2017 0191T Insertion Of Anterior Segment Aqueous Drainage Device Completed 07/31/2017 99059 Extracapsular Cataract Extraction W/Intraocular Lens Completed 07/31/2017 0191T Insertion Of Anterior Segment Aqueous Drainage Device Completed 06/07/2017 03487 Ophthalmic Biometry By Partial Coherence Interferometry Completed W/Intra 06/07/2017 32241 Oct, Optic Nerve Completed 06/07/2017 75976 Eye Exam Est Intermediate Completed 04/26/2017 61630 Eye Exam Est Intermediate Completed 04/26/2017 06000 Visual Field Exam Extended, Unilateral Or Bilateral Completed 03/01/2017 28036 Fundus Photography W/Interpretation & Report Completed 03/01/2017 49901 Ophthalmoscopy Subsequent Completed 03/01/2017 64460 Eye Exam Est Comprehensive Completed 11/25/2016 66717 Refraction Completed 11/25/2016 10469 Eye Exam Est Intermediate Completed 11/03/2016 33342 Eye Exam Est Intermediate Completed 08/02/2016 05368 Oct, Optic Nerve Completed 08/02/2016 97943 Eye Exam Est Intermediate Completed 04/18/2016 20840 Visual Field Exam Extended, Unilateral Or Bilateral Completed 04/18/2016 42233 Eye Exam Est Intermediate Completed 01/14/2016 51405 Fundus Photography W/Interpretation & Report Completed 01/14/2016 90517 Eye Exam Est Intermediate Completed 10/08/2015 57946 Eye Exam Est Intermediate Completed 07/08/2015 51435 Eye Exam Est Intermediate Completed 07/08/2015 85357 Oct, Optic Nerve Completed 03/11/2015 66989 Visual Field Exam Extended, Unilateral Or Bilateral Completed 03/11/2015 83482 Eye Exam Est Intermediate Completed 12/28/2014 72480 Fundus Photography W/Interpretation & Report Completed 12/28/2014 39752 Eye Exam Est Comprehensive Completed 09/29/2014 70896 Eye Exam Est Intermediate Completed 06/24/2014 21981 Eye Exam Est Intermediate Completed 06/08/2014 96690 Eye Exam Est Intermediate Completed 05/29/2014 54626 Eye Exam Est Intermediate Completed 05/21/2014 58338 Oct, Optic Nerve Completed 05/21/2014 71656 Eye Exam Est Intermediate Completed 03/04/2014 65434 Eye Exam Est Intermediate Completed 02/13/2014 42766 Visual Field Exam Extended, Unilateral Or Bilateral Completed 02/13/2014 85739 Eye Exam Est Intermediate Completed 11/13/2013 09506 Incision Conjunctiva Drainage Of Cyst Completed 11/13/2013 75339 Eye Exam Est Comprehensive Completed 11/13/2013 14284 Fundus Photography W/Interpretation & Report Completed 10/26/2011 52650 Fundus Photography W/Interpretation & Report Completed 10/26/2011 69702 Ophthalmoscopy Subsequent Completed 10/26/2011 66063 Eye Exam Est Comprehensive Completed 10/26/2011 23547 Corneal Pachymetry, Unilateral/Bilateral Completed 03/08/2011 31146 Eye Exam Est Intermediate Completed 02/22/2011 71835 Eye Exam Est Intermediate Completed 10/26/2010 61931 Eye Exam Est Intermediate Completed 10/06/2010 69349 Visual Field Exam Extended, Unilateral Or Bilateral Completed 10/06/2010 70549 Eye Exam Est Intermediate Completed 09/05/2010 96254 Fundus Photography W/Interpretation & Report Completed 09/05/2010 42334 Ophthalmoscopy Initial Completed 09/05/2010 15889 Refraction Completed 09/05/2010 03149 Eye Exam New Comprehensive Completed 09/05/2010 75982 Corneal Pachymetry, Unilateral/Bilateral Completed Encounters Type Date Location Provider Dx Diagnosis Office Visit 10/28/2018 Main Office Trevor Brody, OD Z96.1 Presence of 1:45p intraocular lens H40.1131 Primary open-angle glaucoma, bilateral, mild stage 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 opacity of cornea, bilateral Office Visit 03/25/2014 1:45p Main Office Iglesia Gonzlaez, 365.10 Glaucoma Open M.D. Angle Unspec Office Visit 06/08/2011 1:00p Main Office Iglesia Gonzalez, 365.10 Glaucoma Open M.D. Angle Unspec Plan of Treatment 01/27/2019 - Iglesia Gonzalez M.D.H40.1131 Primary open-angle glaucoma, bilateral , mild [id number] Presence of intraocular lensH17.823 Peripheral opacity of cornea, bilateralFollow up:3 mos iop, VF
[2019-02-17 16:31] LABS: ABS Basophils 0.1 10^3/ul (0-0.2); ABS Lymphocytes 1.2 10^3/ul (1.0-4.8); ABS Monocytes 0.3 10^3/ul (0-0.8); ABS Neutrophils 5.5 10^3/ul (1.5-7.7); Eosinophil % 0.6 %; Hematocrit 46 % (42-52); Mean Corpuscular HGB Conc 33 g/dL (31-36); Mean Corpuscular Hemoglobin 29 pg (27-31); Mean Corpuscular Volume 87 fL (80-94); Mean Platelet Volume 9.8 fL (7.4-10.4); Nucleated Red Blood Cells % 0.1; Platelet Count 181 10^3/uL (150-450); Red Blood Count 5.26 10^6 /uL (4.18-5.48); Red Cell Distribution Width 14 % (10-15); White Blood Count 7.1 10^3/uL (3.5-10.8)
--- NOTE | 2019-02-17 17:08 | ED ---
Abdominal Pain/Male - HPI Summary HPI Summary: The patient is a 73 y/o M presenting to [facility] accompanied by with a chief complaint of sudden onset right flank pain starting yesterday with intermittent episodes. He reports that he initially felt mild pain in the right side with aggravation of the pain with movement, then there was pain in the right low back , and also the left flank. He is not currently experiencing pain. He additionally c/o some diarrhea. He denies fever, chills, erythema of eyes, sore throat, CP, SOB, cough, N/V, decreased appetite, dysuria, hematuria, testicular pain, edema, rash, and dizziness. Hx of HTN and HLD. Surgical hx of cholecystectomy, cataract surgery, cyst removal from right hand. Former smoker, no etoh, no substance use. - History of Current Complaint Chief Complaint: EDAbdPain Stated Complaint: ABD PAIN PER PT Time Seen by Provider: 02/17/19 16:49 Hx Obtained From: Patient Onset/Duration: Sudden Onset, Still Present Timing: Intermittent, Lasting Hours Severity Initially: Mild Severity Currently: None Pain Intensity: 0 Pain Scale Used: 0-10 Numeric Location: Flank - bilateral Radiates: Yes Radiates to: Back - right low Character: Dull Aggravating Factor(s): Movement Alleviating Factor(s): Nothing Associated Signs And Symptoms: Positive: Back Pain, Diarrhea, Other - NEGATIVE: chills, erythema of eyes, sore throat, SOB, testicular pain, edema, rash, dizziness. Negative: Fever, Cough, Chest Pain, Urinary Symptoms, Decreased Appetite, Nausea, Vomiting - Allergies/Home Medications Allergies/Adverse Reactions: Allergies Allergy/AdvReac Type Severity Reaction Status Date / Time sardine Allergy GI Upset Uncoded 08/19/18 20:52 PMH/Surg Hx/FS Hx/Imm Hx Endocrine/Hematology History: Denies: Hx Diabetes, Hx Systemic Lupus Erythematosus Cardiovascular History: Reports: Hx Hypercholesterolemia, Hx Hypertension - ON MEDICATION FOR, Hx Valvular Heart Disease - LEAKY ALVE Denies: Hx Congestive Heart Failure, Hx Pacemaker/ICD GI History: Reports: Hx Gastroesophageal Reflux Disease - on an occassion History: Reports: Other Problems/Disorders - 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, but no issues/ENLARGED PROSTATE Denies: Hx Renal Disease Musculoskeletal History: Reports: Hx Arthritis - HANDS Denies: Hx Rheumatoid Arthritis Sensory History: Reports: Hx Cataracts - bilat eyes, Hx Contacts or Glasses - GLASSES, Hx Glaucoma, Other Sensory Impairments - eye pressure uses drops Denies: Hx Hearing Aid Opthamlomology History: Reports: Hx Cataracts - bilat eyes, Hx Contacts or Glasses - GLASSES, Hx Glaucoma, Other Sensory Impairments - eye pressure uses drops Psychiatric History: Denies: Hx Panic Disorder - Surgical History Surgery Procedure, Year, and Place: GALLBLADDER REMOVAL-04/2017. 07/2017- BILATERAL CATARACT REMOVAL Hx Anesthesia Reactions: No - Immunization History Date of Tetanus Vaccine: today Infectious Disease History: No Infectious Disease History: Denies: Traveled Outside the [place] in Last 30 Days - Family History Known Family History: Negative: Cardiac Disease, Hypertension, Diabetes, Blood Disorder - Social History Occupation: Retired Lives: With Family Alcohol Use: Rare Hx Substance Use: No Substance Use Type: Reports: None Hx Tobacco Use: Yes Smoking Status (MU): Former Smoker Amount Used/How Often: smoked for about 10 years, 1ppd Have You Smoked in the Last Year: No Review of Systems Negative: Fever, Chills Negative: Erythema Negative: Sore Throat Negative: Chest Pain Negative: Shortness Of Breath, Cough Positive: Abdominal Pain - bilateral flanks, Diarrhea, Other - NEGATIVE: decreased appetite. Negative: Vomiting, Nausea Positive: other - NEGATIVE: testicular pain. Negative: dysuria, hematuria Positive: Myalgia - low back pain from right flank. Negative: Edema Negative: Rash Neurological: Other - NEGATIVE: dizziness All Other Systems Reviewed And Are Negative: Yes Physical Exam - Summary Physical Exam Summary: Constitutional: Well-developed, Well-nourished, Alert. (-) Distressed Skin: Warm, Dry HENT: Normocephalic; Atraumatic Eyes: Conjunctiva normal Neck: Musculoskeletal ROM normal neck. (-) JVD, (-) Stridor, (-) Tracheal deviation Cardio: Rhythm regular, rate normal, Heart sounds normal; Intact distal pulses; The pedal pulses are 2+ and symmetric. Radial pulses are 2+ and symmetric. (-) Murmur Pulmonary/Chest wall: Effort normal. (-) Respiratory distress, (-) Wheezes, (-) Rales Abd: Soft, (-) tenderness, (-) Distension, (-) Guarding, (-) Rebound Musculoskeletal: (-) Edema Lymph: (-) Cervical adenopathy Neuro: Alert, Oriented x3 Psych: Mood and affect Normal Triage Information Reviewed: Yes Vital Signs On Initial Exam: Initial Vitals Temp Pulse Resp BP Pulse Ox 98.1 F 69 18 175/93 97 02/17/19 15:02 02/17/19 15:02 02/17/19 15:02 02/17/19 15:02 02/17/19 15:02 Vital Signs Reviewed: Yes Diagnostics - Vital Signs Vital Signs Temp Pulse Resp BP Pulse Ox 02/17/19 15:02 98.1 F 69 18 175/93 97 - Laboratory Lab Results: Lab Results 02/17/19 Range/Units 16:22 WBC 7.1 (3.5-10.8) 10^3/uL RBC 5.26 (4.18-5.48) 10^6 /uL Hgb 15.0 (14.0-18.0) g/dL Hct 46 (42-52) % MCV 87 (80-94) fL MCH 29 (27-31) pg MCHC 33 (31-36) g/dL RDW 14 (10-15) % Plt Count 181 (150-450) 10^3/uL MPV 9.8 (7.4-10.4) fL Neut % (Auto) 76.9 % Lymph % (Auto) 17.0 % Schuyler % (Auto) 4.7 % Eos % (Auto) 0.6 % Baso % (Auto) 0.8 % Absolute Neuts (auto) 5.5 (1.5-7.7) 10^3/ul Absolute Lymphs (auto) 1.2 (1.0-4.8) 10^3/ul Absolute Monos (auto) 0.3 (0-0.8) 10^3/ul Absolute Eos (auto) 0.0 (0-0.6) 10^3/ul Absolute Basos (auto) 0.1 (0-0.2) 10^3/ul Absolute Nucleated RBC 0.0 10^3/ul Nucleated RBC % 0.1 Result Diagrams: 02/17/19 16:22 02/17/19 16:22 Lab Statement: Any lab studies that have been ordered have been reviewed, and results considered in the medical decision making process. - CT Abd/Pel CT CT Interpretation Completed By: Radiologist Summary of CT Findings: 1. No CT findings to correlate with patient's symptomatology. Specifically no appendicitis. 2. Random right lower lobe pulmonary nodules with etiologies including chronic aspiration, hematogenous infection, and metastases. Based on current Dagoberto criteria, if low risk followup chest CT in 6-12 months and optional followup in 18-24 months. If high risk followup chest CT in 6-12 months and 18-24 months. 3. Bosniak type I renal cysts. No followup indicated. 4. Distal colonic diverticulosis. ED physician has reviewed this report. Abdominal Pain Male Course/Dx - Course Course Of Treatment: The patient is a 73 y/o M presenting to [facility] accompanied by with a chief complaint of sudden onset right flank pain starting yesterday with intermittent episodes, and associated pain in the right low back and left flank. He additionally c/o some diarrhea. He denies fever, chills, erythema of eyes, sore throat, CP, SOB, cough, N/V, decreased appetite, dysuria , hematuria, testicular pain, edema, rash, and dizziness. Surgical hx of cholecystectomy. Upon physical exam, the patient exhibits no acute abnormalities. In the ED course, blood work reveals creatinine of 1.33, glucose of 104, and lipase of <10 without any other significant abnormality. UA reveals trace ketones and hyaline casts. Abd/Pel CT impression: 1. No CT findings to correlate with patient's symptomatology. Specifically no appendicitis. 2. Random right lower lobe pulmonary nodules with etiologies including chronic aspiration, hematogenous infection, and metastases. Based on current Dagoberto criteria, if low risk followup chest CT in 6-12 months and optional followup in 18-24 months. If high risk followup chest CT in 6-12 months and 18-24 months. 3. Bosniak type I renal cysts. No followup indicated. 4. Distal colonic diverticulosis. Patient is diagnosed with lower abd pain. The patient is a sign- out to Dr. Sivakumar Harrison MD, at change of shift at 1900 pending disposition. Discharge - Sign-Out/Discharge Documenting (check all that apply): Sign-Out Patient Signing out patient TO: Sivakumar Harrison - Patient is a sign-out pending disposition. Patient Received Moderate/Deep Sedation with Procedure: No - Discharge Plan Referrals: Darlene Moreno MD [Primary Care Provider] - - Attestation Statements Document Initiated by Scribe: Yes Documenting Scribe: Lisa Odell Provider For Whom Scribe is Documenting (Include Credential): Dr. Santos Jo MD Scribe Attestation: I, Lisa Odell, scribed for Dr. Santos Jo MD on 02/17/19 at 1943. Status of Scribe Document: Ready
[2019-02-17 17:12] LABS: ALT 11 U/L (7-52); AST 16 U/L (13-39); Albumin/Globulin Ratio 1.2 (1-3); Alkaline Phosphatase 48 U/L (34-104); Anion Gap 7 mmol/L (2-11); BUN/Creatinine Ratio 11.3 (8-20); Blood Urea Nitrogen 15 mg/dL (6-24); C Reactive Protein 3.65 mg/L (<8.01); CO2 Carbon Dioxide 27 mmol/L (22-32); Calcium 9.9 mg/dL (8.6-10.3); Chloride 106 mmol/L (101-111); EGFR Non-African American 52.9 (>60); Globulin 3.3 g/dL (2-4); Glucose 104 mg/dL (70-100); Potassium 4.5 mmol/L (3.5-5.0); Sodium 140 mmol/L (135-145); Total Protein 7.3 g/dL (6.4-8.9)
[2019-02-17 17:14] LABS: Urine Appearance Cloudy; Urine Bacteria Absent (Absent); Urine Bilirubin Negative (Negative); Urine Blood Negative (Negative); Urine Color Yellow; Urine Glucose Negative (Negative); Urine Ketones Trace (Negative); Urine Nitrite Negative (Negative); Urine Protein Negative (Negative); Urine Red Blood Cell Trace(0-2/hpf) (Absent); Urine Specific Gravity 1.019 (1.010-1.030); Urine Urobilinogen Negative (Negative); Urine White Blood Cell Trace(0-5/hpf) (Absent)
[2019-02-17] MEDS ORDERED: Iodixanol* (CONTRAST) 320 MG/ML 100 ML SDV IV ONE (18:14)
[2019-02-17 19:55] VITALS: BP 149/100
--- NOTE | 2019-02-17 20:23 | ED ---
Progress - Progress Note Progress Note: Patient is received as a sign out from Dr. Jo to Dr. Harrison at 1900 02/17/[address] ABD/PEL and disposition of this patient. CT ABD/PEL IMPRESSION: 1. No CT findings to correlate with patient's symptomatology. Specifically no appendicitis. 2. Random right lower lobe pulmonary nodules with etiologies including chronic aspiration, hematogenous infection, and metastases. Based on current Dagoberto criteria, if low risk followup chest CT in 6-12 months and optional followup in 18-24 months. If high risk followup chest CT in 6-12 months and 18-24 months. 3. Bosniak type I renal cysts. No followup indicated. 4. Distal colonic diverticulosis. THIS REPORT WAS REVIEWED BY DR. HARRISON Results of CT were discussed with the patient. He will be discharged to home and follow up with PCP within three days. Course/Dx - Course Course Of Treatment: Patient is received as a sign out from Dr. Jo to Dr. Harrison at 1900 02/17/[address] ABD/PEL and disposition of this patient. CT ABD/PEL IMPRESSION: 1. No CT findings to correlate with patient's symptomatology. Specifically no. appendicitis. 2. Random right lower lobe pulmonary nodules with etiologies including chronic. aspiration, hematogenous infection, and metastases. Based on current Dagoberto. criteria, if low risk followup chest CT in 6-12 months and optional followup in. 18-24 months. If high risk followup chest CT in 6-12 months and 18-24 months. 3. Bosniak type I renal cysts. No followup indicated. 4. Distal colonic diverticulosis. THIS REPORT WAS REVIEWED BY DR. HARRISON. Results of CT were discussed with the patient. He will be discharged to home and follow up with PCP within three days. - Diagnoses Provider Diagnoses: Pulmonary nodule Discharge - Sign-Out/Discharge Documenting (check all that apply): Patient Departure - discharge Patient Received Moderate/Deep Sedation with Procedure: No - Discharge Plan Condition: Stable Disposition: HOME Patient Education Materials: Pulmonary Nodules (ED) Referrals: Darlene Moreno MD [Primary Care Provider] - 3 Days Additional Instructions: PLEASE RETURN TO THE ED IMMEDIATELY FOR WORSENING OR CONCERNING SYMPTOMS. FOLLOW UP WITH YOUR PRIMARY CARE PHYSICIAN WITHIN THREE DAYS. - Attestation Statements Document Initiated by Ry: Yes Documenting Scribe: ROSSY LAM Provider For Whom Scribe is Documenting (Include Credential): ANNIE HARRISON MD Scribe Attestation: I, ROSSY LAM, scribed for ANNIE HARRISON MD on 02/17/19 at 2035. Status of Scribe Document: Ready
== END 2019-02-17 20:44 | disposition home or self-care (01) ==
LOC: ED 14:59
DX: R91.8 Other nonspecific abnormal finding of lung field (principal); N28.1 Cyst of kidney, acquired; K57.30 Diverticulosis of large intestine without perforation or abscess without bleeding; M54.5 Low back pain; R19.7 Diarrhea, unspecified; I10 Essential (primary) hypertension; Z90.49 Acquired absence of other specified parts of digestive tract; Z91.013 Allergy to seafood; Z87.891 Personal history of nicotine dependence
CPT/HCPCS: 36415; 74177; 80053; 81003; 83605; 83690; 85025; 86140; 87086; 99283; Q9967